=== PATIENT | female | born 1955 | race Caucasian/White ===

== ENCOUNTER 2023-03-12 11:36 | Emergency (ER) | payer OTHER ==
[2023-03-12 11:56] VITALS: BP 137/66; RESP 18; TEMP 98.1; BMI 32.1
[2023-03-12] MEDS ORDERED: LIDOCAINE 4% PATCH TP ONE ×2 (12:34→12:38)
[2023-03-12] MEDS ORDERED: LORATADINE 10 MG TABLET PO ONE (12:34)
[2023-03-12] MEDS ORDERED: GABAPENTIN 300 MG CAPSULE PO ONE (12:35)
[2023-03-12] MEDS ORDERED: IBUPROFEN 600 MG TABLET (FP) PO ONE ×2 (12:35→12:38)
[2023-03-12] MEDS ORDERED: valACYclovir HCL 500 MG TABLET (FP) PO ONE (12:35)
[2023-03-12] MEDS ORDERED: LORATADINE 10 MG TABLET ONE (12:38)
[2023-03-12] MEDS ORDERED: valACYclovir HCL 500 MG TABLET (FP) ONE (12:39)
[2023-03-12] MEDS ORDERED: GABAPENTIN 300 MG CAPSULE ONE (12:39)
[2023-03-12 12:58] VITALS: PULSE 86
== END 2023-03-12 13:10 | disposition home or self-care (01) ==
LOC: JERFT 11:36
DX: R21 Rash and other nonspecific skin eruption (principal); B02.9 Zoster without complications
CPT/HCPCS: 99283-25